=== PATIENT | female | born 1955 | race Caucasian/White ===

== ENCOUNTER → 2021-02-14 | Outpatient (CLI) | payer MEDICARE, OTHER ==
--- NOTE | 2021-02-14 17:42 | Diagnostic Imaging Report ---
PROCEDURE: CT abdomen and pelvis without contrast. TECHNIQUE: Multiple contiguous axial images were obtained through the abdomen and pelvis without the use of intravenous contrast. Auto Exposure Controls were utilized during the CT exam to meet ALARA standards for radiation dose reduction. INDICATION: Left flank pain. COMPARISON: None. FINDINGS: Lung bases are clear. The heart is normal in size. There is no pericardial effusion. The liver demonstrates no focal lesions. Cholecystectomy clips are noted. The spleen appears normal. The pancreas is normal. The adrenal glands are normal. The kidneys demonstrate no hydronephrosis. No calculi are seen. The appendix appears normal. The bowel loops are nondistended without obstruction. No free fluid or free air is seen. There is no significant lymphadenopathy. There is a small fat-containing periumbilical hernia. There is no bowel involvement. No acute osseous abnormality is seen. There are degenerative changes in the spine. IMPRESSION: 1. No renal calculi or hydronephrosis. Dictated by: Dictated on workstation # [id number]
== END ==
LOC: RAD 17:06
PROVIDERS: ATTEND Family Medicine
DX: R10.9 Unspecified abdominal pain (principal)
CPT/HCPCS: 74176

== ENCOUNTER 2021-03-09 05:34 | Outpatient (CLI) | payer MEDICARE, OTHER ==
[~2021-03-09] VITALS: Ht 170.2 cm; Wt 90.0 kg
[2021-03-09] MEDS ORDERED: TELM40TA6 PO (13:12)
[2021-03-09] MEDS ORDERED: CARV12.52 PO (13:12)
[2021-03-09] MEDS ORDERED: BUSP5TAB59 PO (13:12)
[2021-03-09] MEDS ORDERED: OMEP40CA6 PO (13:12)
[2021-03-09] MEDS ORDERED: AMLO-250 PO (13:12)
[2021-03-09] MEDS ORDERED: LEVO112T2 PO (13:12)
[2021-03-09] MEDS ORDERED: ASPI-999 PO (13:12)
[2021-03-09] MEDS ORDERED: EZET10TA17 PO (13:12)
== END 2021-03-09 13:20 | disposition home or self-care (01) ==
LOC: PREOP 05:34
PROVIDERS: ATTEND Urology
DX: Z01.818 Encounter for other preprocedural examination (principal)

== ENCOUNTER 2021-03-16 06:29 | Day surgery (SDC) | payer MEDICARE, OTHER ==
[2021-03-16] VITALS (11 sets, daily range): BP systolic 131–168; BP diastolic 68–89
[~2021-03-16] VITALS: Ht 170 cm; Wt 90.0 kg
[~2021-03-16 06:29] MED LIST: AMLO-250 PO; ASPI-999 PO; BUSP5TAB59 PO; CARV12.52 PO; EZET10TA17 PO; LEVO112T2 PO; OMEP40CA6 PO; TELM40TA6 PO
[2021-03-16] MEDS ORDERED: LACTATED RINGERS 1,000 ML IV PRN (07:00)
[2021-03-16] MEDS ORDERED: ceFAZolin INJECTION 1,000 MG VIAL IV ONE (07:00)
[2021-03-16] MEDS ORDERED: ONDANSETRON 4 MG/2 ML (SDV) Z0FRAN ONE (07:16)
[2021-03-16] MEDS ORDERED: proPOfol 200 MG/20 ML (DIPRIVAN) VIAL IV ONE (07:16)
[2021-03-16] MEDS ORDERED: LIDOCAINE PF 2% 5 ML (XYLOCAINE) VIAL ONE (07:16)
[2021-03-16] MEDS ORDERED: fentaNYL INJ 100 MCG/2 ML AMP ONE (07:17)
--- NOTE | 2021-03-16 07:20 | Progress Note-Pre Operative ---
Pre-Operative Progress Note H&P Reviewed The H&P was reviewed, patient examined and no changes noted. Date Seen by Provider: Mar 16, 2021 Time Seen by Provider: 07:20 Date H&P Reviewed: Mar 16, 2021 Time H&P Reviewed: 07:20 Pre-Operative Diagnosis: URETHRAL LESION AND HEMATURIA JH LEO MD Mar 16, 2021 07:20
[2021-03-16] MEDS ORDERED: ceFAZolin INJECTION 0 MG ONE (07:21)
--- NOTE | 2021-03-16 07:24 | Progress Note-Post Operative ---
Post-Operative Progess Note Surgeon (s)/Economics Lecturer (s) Surgeon JH LEO MD Economics Lecturer: NONE Pre-Operative Diagnosis URETHRAL LESION AND HEMATURIA Post-Operative Diagnosis SAME Procedure & Operative Findings Date of Procedure 03/16/21 Procedure Performed/Findings EXCISION OF URETHRAL LESION AND CYSTOSCOPY Anesthesia Type GENERAL Estimated Blood Loss Estimated blood loss (mL): NEGLIGIBLE Specimens/Packing Specimens Removed URETHRAL LESION Packing: NONE JH LEO MD Mar 16, 2021 07:24
--- NOTE | 2021-03-16 07:26 | Discharge Inst-Urology ---
Discharge Inst-Urology Reconcile Patient Problems Problems Reviewed?: Yes Final Diagnosis URETHRAL LESION AND HEMATURIA Patient Instructions/Follow Up Plan/Assessment/Instructions Please make appointment to been seen in office in 2 weeks. Neosporin+pain ointment to urethral meatus BID fo 3-4 days Showers, no bath Keep bowels soft and moving In 72 hours, if no bleeding, may resume ASA, hold if bleeding starts Increase oral fluids for 48 hours and then as needed. Diet and Activity as tolerated. If questions or concerns contact your physician Or seek help at emergency department. JH LEO MD Mar 16, 2021 07:26
[2021-03-16] MEDS ORDERED: GLYCOPYRROLATE 0.2 MG/ML (ROBINUL) 2 ML VIAL ONE (07:40)
[2021-03-16] MEDS ORDERED: NEOSPORIN + PAIN RELIEF CREAM 15 GM ONE (08:03)
[2021-03-16] MEDS ORDERED: SEVOFLURANE (ULTANE) 15 ML INHAL SOLN ONE (08:03)
[2021-03-16] MEDS ORDERED: KETO10TA PO (08:26)
[2021-03-16] MEDS ORDERED: morphine INJ 10 MG/ML 1ML (SYR OR VIAL) IVP ONE (08:30)
[2021-03-16] MEDS ORDERED: ONDANSETRON 4 MG/2 ML (SDV) Z0FRAN IVP PRN (08:30)
--- NOTE | 2021-03-16 08:59 | Anesthesia-General Post-Op ---
General Patient Condition Mental Status/LOC: Same as Preop Cardiovascular: Satisfactory Nausea/Vomiting: Absent Respiratory: Satisfactory Pain: Controlled Complications: Absent Post Op Complications Complications None Follow Up Care/Instructions Patient Instructions None needed. Anesthesia/Patient Condition Patient Condition Patient is doing well, no complaints, stable vital signs, no apparent adverse anesthesia problems. JESSICA AGRAWAL DO Mar 16, 2021 08:59
--- NOTE | 2021-03-16 13:06 | OPERATIVE REPORT ---
DATE OF SERVICE: 03/16/2021 PREOPERATIVE DIAGNOSES: Urethral lesion and hematuria. POSTOPERATIVE DIAGNOSES: Urethral lesion and hematuria. OPERATIONS PERFORMED: Excision of urethral lesion and cystoscopy. SURGEON: Rian Leo MD. ANESTHESIA: General. COMPLICATIONS: None. DESCRIPTION OF PROCEDURE: Under satisfactory general anesthesia, the patient in a lithotomy position, genitalia were prepped and draped in the usual sterile fashion. The polypoid lesion at the 6 o'clock position of the urethral meatus was totally excised. The mucosa was approximated with a few interrupted 4-0 chromic catgut and hemostasis was enforced by some cauterization and it was complete. Cystoscopy was confirmed and the bladder was normal. No lesions and no bladder tumor. No stones. Ureteric orifices with clear efflux. Bladder was emptied and the cystoscope was removed. There was no need for catheter. Neosporin plus pain ointment was applied. The patient tolerated the procedure and anesthesia well and was sent to recovery room in a stable condition. ESTIMATED BLOOD LOSS: Negligible. CC: Levi Red - requested, unable to deliver. Job ID: [id number] DocumentID: [id number] Dictated Date: 03/16/2021 08:14:52 Calender Let Off Operator Date: 03/16/2021 13:05:39 Dictated By: RIAN LEO MD
== END 2021-03-16 10:15 ==
LOC: SDC 06:29
PROVIDERS: ATTEND Urology
DX: N36.2 Urethral caruncle (principal); R31.9 Hematuria, unspecified; I10 Essential (primary) hypertension; E78.5 Hyperlipidemia, unspecified; K21.9 Gastro-esophageal reflux disease without esophagitis; E03.9 Hypothyroidism, unspecified; E53.8 Deficiency of other specified B group vitamins; F17.210 Nicotine dependence, cigarettes, uncomplicated; F41.9 Anxiety disorder, unspecified; Z79.82 Long term (current) use of aspirin; Z79.890 Hormone replacement therapy; Z79.899 Other long term (current) drug therapy
CPT/HCPCS: 87081; 88305